=== PATIENT | male | born 1935 | race Two or more races ===

== ENCOUNTER 2017-03-04 05:37 | Emergency (ER) | payer OTHER ==
[~2017-03-04] VITALS: Ht 170.2 cm; Wt 72.1 kg
[~2017-03-04 05:37] MED LIST: AMOX-291 PO; BENA20TA2 PO; CLAR500T PO; GABA-826 PO; PANT40TA5 PO
[2017-03-04] MEDS ORDERED: LABETALOL 5MG/ML, 20ML ONE (05:58)
[2017-03-04] MEDS ORDERED: LABETALOL 5MG/ML, 20ML IVPush STA (05:59)
[2017-03-04 06:03] LABS: HEMATOCRIT 42.6 % (39.2-51.8); HEMOGLOBIN 13.8 g/dL (13.7-18.0)
[2017-03-04] MEDS ORDERED: OMNIPAQUE 350 MG/ML, 100ML BOTTLE ONE (06:04)
[2017-03-04] MEDS ORDERED: ASPIRIN 81 MG TABLET CHEW PO STA (06:13)
[2017-03-04] MEDS ORDERED: ASPIRIN 81 MG TABLET CHEW ONE (06:29)
[2017-03-04 06:32] LABS: DIFF TOTAL CELLS COUNTED 100 CELL DIFF
[2017-03-04 06:38] LABS: ANISOCYTOSIS 1+; OVALOCYTES 1+
[2017-03-04 06:39] LABS: LARGE PLATELETS 1+
[2017-03-04 06:40] LABS: VERIFY COUNTS? YES
[2017-03-04] MEDS ORDERED: METH4TAB PO (06:41)
[2017-03-04] MEDS ORDERED: SODIUM CHLORIDE 0.9% 1,000 ML IV ONE (07:36)
[2017-03-04 08:02] VITALS: BP 169/78
== END 2017-03-04 08:48 | disposition short-term general hospital (02) ==
LOC: EDBD → MERGE 05:37 → ED 07:20
DX: G45.9 Transient cerebral ischemic attack, unspecified (principal); I65.29 Occlusion and stenosis of unspecified carotid artery; E11.9 Type 2 diabetes mellitus without complications
CPT/HCPCS: 36415; 70450; 70496; 70498; 80047; 85025; 85610; 85730; 93005; 96374; 99291; J7030; Q9967